=== PATIENT | female | born 1980 | race Caucasian/White ===

== ENCOUNTER 2017-05-19 13:46 | Emergency (ER) | payer SELFPAY ==
[~2017-05-19] VITALS: Ht 157.5 cm; Wt 65.0 kg
[2017-05-19] MEDS ORDERED: ACETAMINOPHEN 500MG TABLET PO ONE (14:30)
[2017-05-19] MEDS ORDERED: LIDOCAINE HCL 1% 20ML VIAL (Pyxis) INJ MC ONE (14:30)
[2017-05-19] MEDS ORDERED: TETANUS, DIPHTHERIA, PERTUSSIS VAC/PF 0.5ML (>7YR OLD) IM ONE (14:30)
[2017-05-19 15:35] VITALS: BP 128/84
== END 2017-05-19 16:00 | disposition home or self-care (01) ==
LOC: EDBD → ER 13:59
DX: S01.81XA Laceration without foreign body of other part of head, initial encounter (principal); R51 Headache; Y08.89XA Assault by other specified means, initial encounter; Y93.89 Activity, other specified; Y07.59 Other non-family member, perpetrator of maltreatment and neglect; Y92.099 Unspecified place in other non-institutional residence as the place of occurrence of the external cause; Z23 Encounter for immunization
CPT/HCPCS: 12002; 90471; 90715; 99283; J3490; X7700; Z7610

== ENCOUNTER 2017-05-22 17:27 | Emergency (ER) | payer MEDICAID ==
[~2017-05-22] VITALS: Ht 162.6 cm; Wt 60.0 kg
[2017-05-22 17:29] VITALS: BP 90/32
[2017-05-22] MEDS ORDERED: BACITRACIN ZINC OINT UDPKT TOP ONE (20:45)
[2017-05-22] MEDS ORDERED: ACETAMINOPHEN 500MG TABLET PO ONE (20:45)
== END 2017-05-22 21:11 | disposition home or self-care (01) ==
LOC: ER 19:04
DX: S01.01XD Laceration without foreign body of scalp, subsequent encounter (principal); D64.9 Anemia, unspecified; Y93.89 Activity, other specified; Y99.8 Other external cause status; Y92.89 Other specified places as the place of occurrence of the external cause
CPT/HCPCS: 99283; Z7610

== ENCOUNTER 2017-05-28 13:36 | Emergency (ER) | payer MEDICAID ==
[~2017-05-28] VITALS: Ht 162.6 cm; Wt 61.0 kg
[2017-05-28] MEDS ORDERED: KETOROLAC 30MG/ML VIAL IV ONE (15:30)
[2017-05-28] MEDS ORDERED: ONDANSETRON HCL 4MG/2ML VIAL IV ONE (15:30)
[2017-05-28] MEDS ORDERED: SODIUM CHLORIDE 0.9% 1,000 ML IV ONE (15:30)
[2017-05-28] MEDS ORDERED: ACETAMINOPHEN 500MG TABLET PO ONE (16:30)
[2017-05-28] MEDS ORDERED: ONDANSETRON 4MG ODT PO ONE (16:30)
[2017-05-28 17:20] VITALS: BP 87/45
== END 2017-05-28 18:14 | disposition home or self-care (01) ==
LOC: ER 13:40
DX: R42 Dizziness and giddiness (principal); D64.9 Anemia, unspecified
CPT/HCPCS: 70450; 99284; Q0162; J7030